=== PATIENT | female | born 1970 | race Caucasian/White ===

== ENCOUNTER → 2021-09-21 | Day surgery (SDC) | payer OTHER ==
[~2021-09-21] VITALS: Ht 160 cm; Wt 64.9 kg
[~2021-09-21] MED LIST: CLARITIN10 MG PO; CYCLOBENZAPRINE10 MG PO; DITROPAN5 MG PO; IBUPROFEN800 MG PO; ROBAXIN750 MG PO; SINGULAIR10 MG PO
[2021-09-21 08:25] LABS: HCG (URINE) SCREEN NEGATIVE (NEGATIVE)
== END | disposition home or self-care (01) ==
LOC: FAS 07:55
PROVIDERS: Anesthesiology
DX: Z12.11 Encounter for screening for malignant neoplasm of colon (principal); D12.6 Benign neoplasm of colon, unspecified; D12.8 Benign neoplasm of rectum; K58.9 Irritable bowel syndrome, unspecified; K64.8 Other hemorrhoids; K64.4 Residual hemorrhoidal skin tags; I10 Essential (primary) hypertension; F17.200 Nicotine dependence, unspecified, uncomplicated; Z80.0 Family history of malignant neoplasm of digestive organs; Z83.71 Family history of colonic polyps; Z88.1 Allergy status to other antibiotic agents
CPT/HCPCS: 84703; J1610; J2250; J2704; J7120

== ENCOUNTER 2021-12-17 04:00 | Emergency (ER) | payer OTHER ==
[2021-12-17] MEDS ORDERED: NORCO 5-325 TA1 EACH PO (06:39)
[2021-12-17] MEDS ORDERED: ONDANSETRON ODT4 MG PO (06:39)
== END 2021-12-17 06:45 | disposition home or self-care (01) ==
LOC: FER 04:00
DX: R04.0 Epistaxis (principal); R51.9 Headache, unspecified; R11.0 Nausea; F17.210 Nicotine dependence, cigarettes, uncomplicated; Z88.1 Allergy status to other antibiotic agents
CPT/HCPCS: C9046; J2550

== ENCOUNTER 2021-12-18 12:35 | Emergency (ER) | payer OTHER ==
[~2021-12-18 12:35] MED LIST changes: +NORCO 5-325 TA1 EACH PO; +ONDANSETRON ODT4 MG PO
[2021-12-18 14:43] LABS: BASOPHIL 0.4 % (0-2); EOSINOPHIL 1.7 % (0-5); HCT 40.7 % (37.0-47.0); HGB 13.6 g/dl (12.5-16.0); LYMPHOCYTE 25.4 % (15-48); MCH 32.2 pg (25.0-31.0); MCHC 33.4 g/dL (32.0-36.0); MCV 96.4 fL (78.0-100.0); MONOCYTE 5.7 % (0-12); MPV 10.2 fL (6.0-9.5); NEUTROPHIL 66.2 % (41-80); NRBC 0; PLT 266 K/uL (150-400); RBC 4.22 M/uL (4.20-5.40); RDW 13.7 % (11.5-14.0); WBC 14.5 K/uL (4.0-10.5)
[2021-12-18 14:49] LABS: INR 0.92 (0.9-1.2); PROTHROMBIN TIME 12.1 SECONDS (11.9-13.9); PTT 25.8 SECONDS (24.9-34.6)
[2021-12-18 15:08] LABS: BUN/CREAT RATIO (CALC) 19.8 RATIO; CREATININE 1.31 mg/dL (0.51-0.95); POTASSIUM 4.1 mmol/L (3.5-5.1)
== END 2021-12-18 15:54 | disposition home or self-care (01) ==
LOC: FER 12:35
PROVIDERS: Nurse Practitioner Family
DX: R04.0 Epistaxis (principal); I10 Essential (primary) hypertension; Z88.1 Allergy status to other antibiotic agents; Z28.310 Unvaccinated for COVID-19
CPT/HCPCS: 36415; 80048; 85025; 85610; 85730; C9046; J7030

== ENCOUNTER 2021-12-19 02:23 | Emergency (ER) | payer OTHER ==
[2021-12-19 03:16] LABS: HCT 37.3 % (37.0-47.0); HGB 12.2 g/dL (12.5-16.0)
== END 2021-12-19 03:38 | disposition home or self-care (01) ==
LOC: FER 02:23
PROVIDERS: Emergency Medicine
DX: R04.0 Epistaxis (principal); F17.200 Nicotine dependence, unspecified, uncomplicated; Z88.1 Allergy status to other antibiotic agents
CPT/HCPCS: 36415; 85014; 85018; 99283